=== PATIENT | male | born 1960 | race Caucasian/White ===

== ENCOUNTER 2017-11-02 19:35 | Emergency (ER) | payer BC ==
[2017-11-02 20:15] VITALS: BP 136/63
--- NOTE | 2017-11-02 21:17 | UC ---
Back Pain HPI - HPI Summary HPI Summary: 57 year old male with significant cardiac history has back pain in the mid back that is worsened when he stretches up his hands. complaints of mid to upper back , limited rom of upper arms, pain for past several years, pcp recommends PT, patient requesting pain medication and xrays. He has had MRI back in the past and went to specialist and not sure if will get surgery or injections in the future. States awaiting PT. Has not had xrays of the thoracic area and the Lumbar MRI > 1 year ago. No foot drop. Mild intermittent sciatica but not at this time. HE states his family wanted him to be seen as he has been complaining for a while . No incontinence. No foot drop. Feels muscle tightness / spasms in the mid back , is active at home and work which may have set it off recently. [ End ] - History of Current Complaint Chief Complaint: UCBackPain Stated Complaint: BACK PAIN Time Seen by Provider: 11/02/17 20:28 Hx Obtained From: Patient Onset/Duration: Sudden Onset, Gradual Onset Timing: Intermittent Severity Initially: Moderate Severity Currently: Moderate Pain Intensity: 8 Character: Sharp, Spasmodic, Stiffness Aggravating Factor(s): Movement, Lifting, Bending - Allergies/Home Medications Allergies/Adverse Reactions: Allergies Allergy/AdvReac Type Severity Reaction Status Date / Time amoxicillin [From Augmentin] Allergy Swelling Verified 11/02/17 20:15 Of Face,Lips,& Throat clavulanic acid Allergy Swelling Verified 11/02/17 20:15 [From Augmentin] Of Face,Lips,& Throat Home Medications: Home Medications Albuterol Sulfate [Proventil Hfa] 108 mcg IN DAILY 11/02/17 [History Confirmed 11/02/17] Aspirin TAB* [Aspirin 325 MG TAB*] 325 mg PO DAILY 11/02/17 [History Confirmed 11/02/17] Atorvastatin* [Lipitor*] 40 mg PO 1700 11/02/17 [History Confirmed 11/02/17] Clopidogrel TAB* [Plavix TAB*] 75 mg PO DAILY 11/02/17 [History Confirmed ] Fluticasone-Salmeterol 100-50* [Advair Diskus 100-50*] 1 puff INH BID 11/02/17 [ History Confirmed 11/02/17] Metoprolol/Hydrochlorothiazide [Metoprolol-Hctz 100-25 mg Tab] 1 each PO DAILY 11/02/17 [History Confirmed 11/02/17] Naproxen TAB* [Naprosyn 250 mg TAB*] 500 mg PO Q8H PRN 11/02/17 [History Confirmed 11/02/17] metFORMIN* [Glucophage 500 MG TAB *] 500 mg PO DAILY 11/02/17 [History Confirmed 11/02/17] PMH/Surg Hx/FS Hx/Imm Hx Previously Healthy: Yes Endocrine History: Dyslipidemia Cardiovascular History: Cardiac Disease, Hypertension Respiratory History: COPD - Surgical History Surgical History: Yes Surgery Procedure, Year, and Place: 6 cardiac stents - Family History Known Family History: Positive: None - Social History Occupation: Employed Full-time Lives: With Family Alcohol Use: Rare Substance Use Type: None Smoking Status (MU): Heavy Every Day Tobacco Smoker Review of Systems Musculoskeletal: Arthralgia, Decreased ROM All Other Systems Reviewed And Are Negative: Yes Physical Exam Triage Information Reviewed: Yes Appearance: Well-Appearing, No Pain Distress, Well-Nourished Vital Signs: Initial Vital Signs Temp 98.5 F 11/02/17 20:07 Pulse 70 11/02/17 20:07 Resp 16 11/02/17 20:07 BP 136/63 11/02/17 20:07 Pulse Ox 96 11/02/17 20:07 Vital Signs Reviewed: Yes Eye Exam: Normal ENT Exam: Normal Neck: Positive: 1 Respiratory Exam: Normal Cardiovascular Exam: Normal Musculoskeletal Exam: Normal Musculoskeletal: Positive: Strength Intact, ROM Intact, Other: - Mild paraspinal tenderness T8-9 and tightness to palpation. Neg SLR b/l . Mild low back tenderness to palpation diffusely in the lumbar spine. Strength 5/5 at this time. Sensation intact. Neurological Exam: Normal Psychological Exam: Normal Skin Exam: Normal Diagnostics - Laboratory Diagnostic Studies Completed/Ordered: Xray : L spine with moderate to severe DDD and also moderate DDD thoracic spine with bone spurs read by this physician. official reading showed: Back Pain Course/Dx - Course Course Of Treatment: He will try to start PT after getting it approved by PCP. APAP prn pain . No NSAIDs due to cardiac history. GO to ED if develop red flags / acute cocnerns - Differential Dx/Diagnosis Differential Diagnosis/HQI/PQRI: Arthritis, Herniated Disc, Strain, Sprain Provider Diagnoses: DDD thoracic and lumbar spine with thoracic back spasm Discharge - Discharge Plan Condition: Good Disposition: HOME Prescriptions: tiZANidine TAB* [Zanaflex TAB*] 2 mg PO BEDTIME #10 tab Patient Education Materials: Back Pain (ED) Referrals: Heidi Ramírez NP [Primary Care Provider] - 4 Days
--- NOTE | 2017-11-02 21:35 | RAD ---
INDICATION: Back pain. COMPARISON: There are no prior studies available for comparison. TECHNIQUE: Upright AP and lateral films of the lumbar spine were obtained. FINDINGS: The vertebra are in normal alignment. No fracture is seen. There is moderate degenerative disc disease at the L2-L3, L3-L4 and L4-L5 levels and moderate to severe degenerative disc disease at the L5-S1 level. There is also facet osteoarthritis which is most prominent at the L4-L5 and L5-S1 levels. IMPRESSION: MODERATE TO SEVERE DEGENERATIVE DISC DISEASE.
--- NOTE | 2017-11-02 21:36 | RAD ---
INDICATION: Back pain. COMPARISON: There are no prior studies available for comparison. TECHNIQUE: AP and lateral films of the dorsal spine were obtained. FINDINGS: There is a mild dorsal scoliosis convex toward the right side. The vertebra are otherwise in normal alignment. No fracture is seen. There is mild to moderate diffuse degenerative disc disease throughout the dorsal spine. IMPRESSION: MILD TO MODERATE DIFFUSE DEGENERATIVE DISC DISEASE.
== END 2017-11-02 21:33 | disposition home or self-care (01) ==
LOC: UCCORT 19:35
DX: M51.36 Other intervertebral disc degeneration, lumbar region (principal); M51.34 Other intervertebral disc degeneration, thoracic region; M62.830 Muscle spasm of back; Z88.1 Allergy status to other antibiotic agents; Z88.8 Allergy status to other drugs, medicaments and biological substances; E78.5 Hyperlipidemia, unspecified; I10 Essential (primary) hypertension; I51.9 Heart disease, unspecified; J44.9 Chronic obstructive pulmonary disease, unspecified; Z95.5 Presence of coronary angioplasty implant and graft; F17.210 Nicotine dependence, cigarettes, uncomplicated
CPT/HCPCS: 72070; 72100; 93005; 99202; G0463

== ENCOUNTER 2022-08-28 04:04 | Inpatient (IN) ==
[2022-08-28] MEDS ORDERED: Albuterol HFA INHALER 8 gm MDI INH PRN (05:22)
[2022-08-28] MEDS ORDERED: Albuterol HFA INHALER 8 gm MDI INH ONE (05:28)
[2022-08-28] MEDS ORDERED: Heparin DRIP 25,000 UNITS BAG 25,000 UNITS/500 ML BAG IV SCH (05:30)
[2022-08-28 05:46] LABS: ABS Basophils 0.1 10^3/ul (0-0.2); ABS Eosinophils 0.4 10^3/ul (0-0.6); ABS Lymphocytes 2.9 10^3/ul (1.0-4.8); ABS Monocytes 0.7 10^3/ul (0-0.8); ABS Neutrophils 5.3 10^3/ul (1.5-7.7); Eosinophil % 4.5 %; Hematocrit 42 % (42-52); Hemoglobin 14.5 g/dL (14.0-18.0); Lymphocyte % 30.4 %; Mean Corpuscular HGB Conc 35 g/dL (31-36); Mean Corpuscular Hemoglobin 34 pg (27-31); Mean Corpuscular Volume 96 fL (80-94); Mean Platelet Volume 7.9 fL (7.4-10.4); Platelet Count 249 10^3/uL (150-450); Red Blood Count 4.33 10^6 /uL (4.18-5.48); Red Cell Distribution Width 13 % (10-15); White Blood Count 9.4 10^3/uL (3.5-10.8)
[2022-08-28] MEDS ORDERED: Heparin 5000 UNITS/ML 1 mL VIAL IV SCH (06:00)
[2022-08-28 06:20] LABS: Urine Appearance Clear; Urine Bilirubin Negative (Negative); Urine Blood Negative (Negative); Urine Color Yellow; Urine Glucose 1+(50 mg/dL) (Negative); Urine Ketones Negative (Negative); Urine Nitrite Negative (Negative); Urine Protein Negative (Negative); Urine Specific Gravity 1.021 (1.002-1.030); Urine Urobilinogen Negative (Negative)
[2022-08-28 06:25] LABS: HDL Cholesterol 33.3 mg/dL
[2022-08-28 06:26] LABS: Albumin 3.8 g/dL (3.2-5.2); Calcium 8.8 mg/dL (8.6-10.3); Globulin 1.9 g/dL (2-4); Potassium 3.8 mmol/L (3.5-5.0); Total Bilirubin 0.6 mg/dL (0.2-1.0); Total Protein 5.7 g/dL (6.4-8.9); eGFR CKD-EPI 102.3 (>60)
[2022-08-28 06:40] LABS: TSH Ultra Thyroid Stim Horm 3.67 mcIU/mL (0.34-5.60)
[2022-08-28] MEDS ORDERED: Magnesium Hydroxide LIQ 30 ML UDC PO PRN (06:40)
[2022-08-28] MEDS ORDERED: Senna TAB 8.6 mg TAB PO PRN (06:40)
[2022-08-28] MEDS ORDERED: Dextrose 50% Syringe 50 ml 25 GM/50 ML SYRINGE IV PUSH PRN (06:55)
[2022-08-28 07:06] LABS: High Sensitivity Troponin 1 Hr 1118 pg/mL (<20)
[2022-08-28] MEDS: Heparin DRIP 25,000 UNITS BAG 25,000 UNITS/500 ML BAG IV SCH (07:19)
[2022-08-28] MEDS ORDERED: Potassium Chlor 20 meq TAB.ER PO ONE (07:35)
[2022-08-28] MEDS: Mometasone/Formoter 100/5 MDI INH SCH ×2 (07:42→19:40)
[2022-08-28 08:21] LABS: Magnesium 1.7 mg/dL (1.9-2.7)
[2022-08-28] MEDS: Isosorbide Mononit ER 60mg TAB PO SCH (12:19)
[2022-08-29] MEDS: Heparin DRIP 25,000 UNITS BAG 25,000 UNITS/500 ML BAG IV SCH (04:34)
[2022-08-29] MEDS ORDERED: NS 0.9% 1000 ml BAG 1,000 ML IV SCH ×2 (06:00→10:30)
[2022-08-29 06:32] LABS: ABS Basophils 0.1 10^3/ul (0-0.2); ABS Eosinophils 0.3 10^3/ul (0-0.6); ABS Lymphocytes 2.4 10^3/ul (1.0-4.8); ABS Monocytes 0.9 10^3/ul (0-0.8); ABS Neutrophils 7.6 10^3/ul (1.5-7.7); Eosinophil % 2.5 %; Hematocrit 40 % (42-52); Hemoglobin 13.6 g/dL (14.0-18.0); Lymphocyte % 21.4 %; Mean Corpuscular HGB Conc 34 g/dL (31-36); Mean Corpuscular Hemoglobin 32 pg (27-31); Mean Corpuscular Volume 95 fL (80-94); Mean Platelet Volume 8.6 fL (7.4-10.4); Platelet Count 248 10^3/uL (150-450); Red Blood Count 4.21 10^6 /uL (4.18-5.48); Red Cell Distribution Width 14 % (10-15); White Blood Count 11.2 10^3/uL (3.5-10.8)
[2022-08-29 06:51] LABS: Calcium 8.8 mg/dL (8.6-10.3); Potassium 3.9 mmol/L (3.5-5.0); eGFR CKD-EPI 100.3 (>60)
[2022-08-29] MEDS: Mometasone/Formoter 100/5 MDI INH SCH ×3 (07:38→21:51)
[2022-08-29] MEDS: Isosorbide Mononit ER 60mg TAB PO SCH (08:16)
[2022-08-29] MEDS ORDERED: Midazolam 5 mg/5 ml VIAL 1 mg/ml 5 ml VIAL (5 mg) ONE (08:16)
[2022-08-29] MEDS ORDERED: VERAPAMIL 2.5 MG/ML 2 ML VIAL ** 5 mg/2 ml ONE (08:16)
[2022-08-29] MEDS ORDERED: Heparin 1,000 UNIT/ML 10 ml (10,000 UNITS) CATHLAB/DIALYSIS ONE (08:16)
[2022-08-29] MEDS ORDERED: fentaNYL 100 mcg/2 ml 50 MCG/ML VIAL ONE (08:16)
[2022-08-29] MEDS ORDERED: nitroGLYCERIN DRIP 25,000 MCG/250 ML BTL ONE (08:17)
[2022-08-29] MEDS ORDERED: Heparin 2 UNITS/ML 1000 mls 2,000 ML IV ONE (08:17)
[2022-08-29] MEDS ORDERED: Iohexol 350 (CONTRAST) 100 ML PAK IV ONE (08:17)
[2022-08-29] MEDS ORDERED: Lidocaine 1% MPF 5 ML VIAL ONE (08:17)
[2022-08-29 08:23] LABS: Activated Partial Thrombo Time 43.5 seconds (26.0-38.0)
[2022-08-29 08:39] LABS: INR 1.08 (0.88-1.18)
[2022-08-29 08:42] LABS: Magnesium 1.9 mg/dL (1.9-2.7)
[2022-08-29] MEDS ORDERED: Bivalirudin 250 MG VIAL ONE (09:23)
[2022-08-29] MEDS ORDERED: Desmopressin Acetate 2 MCG in NS 0.9% 50 ML 50 ML IVPB ONE (10:07)
[2022-08-29] MEDS ORDERED: D5W 250 ml BAG 250 ML IV SCH (11:00)
[2022-08-29 18:04] LABS: Calcium 8.7 mg/dL (8.6-10.3); Potassium 4.1 mmol/L (3.5-5.0); eGFR CKD-EPI 98.2 (>60)
[2022-08-30 04:53] LABS: ABS Basophils 0.1 10^3/ul (0-0.2); ABS Eosinophils 0.3 10^3/ul (0-0.6); ABS Lymphocytes 2.1 10^3/ul (1.0-4.8); ABS Monocytes 0.8 10^3/ul (0-0.8); ABS Neutrophils 7.5 10^3/ul (1.5-7.7); Eosinophil % 2.6 %; Hematocrit 40 % (42-52); Hemoglobin 13.5 g/dL (14.0-18.0); Lymphocyte % 19.3 %; Mean Corpuscular HGB Conc 34 g/dL (31-36); Mean Corpuscular Hemoglobin 33 pg (27-31); Mean Corpuscular Volume 96 fL (80-94); Mean Platelet Volume 8.2 fL (7.4-10.4); Platelet Count 230 10^3/uL (150-450); Red Blood Count 4.13 10^6 /uL (4.18-5.48); Red Cell Distribution Width 13 % (10-15); White Blood Count 10.7 10^3/uL (3.5-10.8)
[2022-08-30 05:23] LABS: Magnesium 1.9 mg/dL (1.9-2.7); Potassium 4.2 mmol/L (3.5-5.0); eGFR CKD-EPI 106.7 (>60)
[2022-08-30] MEDS: Isosorbide Mononit ER 60mg TAB PO SCH (08:50)
[2022-08-30 09:09] VITALS: BP 155/73
[2022-08-30] MEDS: Mometasone/Formoter 100/5 MDI INH SCH (10:21)
== END 2022-08-30 11:25 | disposition home or self-care (01) | DRG 174 ==
LOC: ED 04:04 → EDHOLD 04:04 → SUATTDRO 04:16 → MEDTELE 06:14 → ICU 08-29 10:34
PROVIDERS: ADMIT Internal Medicine; ATTEND Internal Medicine